=== PATIENT | male | born 1990 | race Caucasian/White ===

== ENCOUNTER → 2017-12-16 | Outpatient (REF) ==
[~2017-12-16] MED LIST: OMEP-125 PO
== END ==
LOC: AUD 09:00
PROVIDERS: ATTEND Internal Medicine
DX: Z01.10 Encounter for examination of ears and hearing without abnormal findings (principal)
CPT/HCPCS: 92552

== ENCOUNTER → 2019-01-04 | Outpatient (REF) | LOC: AUD 08:45 | PROVIDERS: ATTEND Internal Medicine | DX: Z01.12 Encounter for hearing conservation and treatment (principal) | CPT/HCPCS: 92552 ==